=== PATIENT | male | born 1965 | race African-American/Black ===

== ENCOUNTER 2020-05-31 13:56 | Emergency (ER) | payer MEDICAID ==
[~2020-05-31] VITALS: Ht 185.4 cm; Wt 98.5 kg
[2020-05-31 14:13] VITALS: BP 153/87
== END 2020-05-31 17:26 | disposition home or self-care (01) ==
LOC: ER 14:13
DX: R68.89 Other general symptoms and signs (principal); Z53.21 Procedure and treatment not carried out due to patient leaving prior to being seen by health care provider

== ENCOUNTER 2020-05-31 17:43 | Emergency (ER) | payer MEDICAID ==
[~2020-05-31] VITALS: Ht 182.9 cm; Wt 118.0 kg
[2020-05-31] MEDS ORDERED: LORAZEPAM 2MG/ML CPJ IM ONE (18:45)
[2020-05-31] MEDS ORDERED: SODIUM CHLORIDE 0.9% 1,000 ML IV ONE (18:45)
[2020-05-31] MEDS ORDERED: DIPHENHYDRAMINE 50MG/ML VIAL IM PRN (18:45)
[2020-05-31] MEDS ORDERED: HALOPERIDOL LACTATE 5MG/ML VIAL IM ONE (18:45)
[2020-05-31 19:21] LABS: BASOPHILS % 0.3 % (0.0-2.0); EOSINOPHILS % 0.9 % (0.0-5.0); HEMATOCRIT. 50.1 % (42.0-52.0); HEMOGLOBIN. 15.8 g/dL (14.0-18.0); LYMPHOCYTES % 10.6 % (20.0-50.0); MEAN CORPUSCULAR HEMOGLOBIN 30.5 pg (28.0-32.0); MEAN CORPUSCULAR VOLUME 96.7 fL (80.0-94.0); MEAN PLATELET VOLUME 9.1 fl (7.4-10.4); MONOCYTES % 5.8 % (2.0-8.0); NEUTROPHILS % 82.4 % (40.0-76.0); PLATELET 265 x1000/uL (130-400); RED BLOOD CELL COUNT 5.19 mill/uL (4.7-6.1); RED CELL DISTRIBUTION WIDTH 14.5 % (11.6-14.6)
[2020-05-31 19:37] LABS: CHLORIDE 100 mEq/L (98-107)
[2020-05-31 19:46] LABS: ETHANOL BLOOD < 10 mg/dL
[2020-05-31 21:29] LABS: CLARITY URINE CLEAR (CLEAR); COLOR URINE YELLOW (YELLOW); KETONES URINE NEGATIVE (NEGATIVE); LEUKOCYTE ESTERASE URINE NEGATIVE (NEGATIVE); NITRITE URINE NEGATIVE (NEGATIVE); OCCULT BLOOD URINE 1+ (NEGATIVE); PROTEIN URINE 2+ (NEGATIVE); UROBILINOGEN URINE 0.2 E.U./dL (0.2-1.0)
[2020-05-31 22:20] LABS: *AMPHETAMINES SCREEN URINE NEGATIVE (NEGATIVE); *BARBITURATES SCREEN URINE NEGATIVE (NEGATIVE); *BENZODIAZEPINES SCREEN URINE NEGATIVE (NEGATIVE); *COCAINE SCREEN URINE NEGATIVE (NEGATIVE); CANNABINOID URINE SCREEN PRESUMTIVE POSITIVE (NEGATIVE); METHADONE URINE SCREEN NEGATIVE (NEGATIVE); OPIATES URINE SCREEN PRESUMTIVE POSITIVE (NEGATIVE); PHENCYCLIDINE URINE SCREEN PRESUMTIVE POSITIVE (NEGATIVE)
[2020-05-31 22:53] VITALS: BP 151/82
== END 2020-05-31 22:54 | disposition home or self-care (01) ==
LOC: ER 17:43
DX: F19.10 Other psychoactive substance abuse, uncomplicated (principal); I10 Essential (primary) hypertension; F12.10 Cannabis abuse, uncomplicated; F11.10 Opioid abuse, uncomplicated; R73.9 Hyperglycemia, unspecified
CPT/HCPCS: 36415; 80053; 80305; 80307; 80320; 80329; 81003; 82962; 85025; 93005; 96360; 96372; 99284; J1200; J1630; J2060; J7030; Z7610; G0480